=== PATIENT | male | born 1970 | race Caucasian/White ===

== ENCOUNTER 2022-04-29 15:12 | Emergency (ER) | payer OTHER, SELFPAY ==
[2022-04-29 15:17] VITALS: BP 130/88; PULSE 89; RESP 18; TEMP 36.8; O2SAT 98
[2022-04-29 15:22] VITALS: BP 181/108; PULSE 89; RESP 16; O2SAT 99
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
[2022-04-29 16:34] VITALS: BP 181/108; PULSE 89; RESP 16; TEMP 36.8; O2SAT 99
[2022-04-29] MEDS: orphenadrine 30 mg/mL Inj 2 mL 60 MG IM (16:36)
[2022-04-29] MEDS: dexamethasone 10 mg/mL INJ IM (16:36)
[2022-04-29] MEDS: ketorolac 60 mg/2 mL INJ IM (16:36)
[2022-04-29 18:04] VITALS: BP 137/65; PULSE 82; RESP 16; O2SAT 93
[2022-04-29 18:38] VITALS: BP 125/78; PULSE 87; RESP 17; O2SAT 98
== END 2022-04-29 18:41 | disposition home or self-care (01) ==
PROVIDERS: Emergency Provider Family Medicine
DX: M54.50 Low back pain, unspecified (principal)
CPT/HCPCS: 72125; 72128; 72131; 96372; 99284; J1100; J1885; J2360

== ENCOUNTER 2022-05-05 11:01 | Emergency (ER) | payer OTHER, SELFPAY ==
[2022-05-05 11:19] VITALS: BP 131/84; PULSE 70; RESP 16; TEMP 36.7; O2SAT 97; BMI 31.1
[2022-05-05 11:53] LABS: Add Urine Microscopic? NO; Charge for UA Resulting for Rev
[2022-05-05 11:53] LABS: Basophils % 0.4 %; Eosinophils # 0.1 10^3/uL (0.0-0.8); Eosinophils % 1.4 %; Hematocrit 49.7 % (42.0-52.0); Hemoglobin 16.7 g/dL (11.7-16.6); Lymphocytes # 3.5 10^3/uL (0.8-4.8); Lymphocytes % 37.2 %; Mean Corpuscular HGB Conc 33.6 g/dL (30.0-36.0); Mean Corpuscular Hemoglobin 30.2 pg (28.0-34.0); Mean Corpuscular Volume 89.9 fl (80-94); Monocytes # 0.8 10^3/uL (0.2-0.9); Monocytes % 8.3 %; Neutrophils # 4.77 10^3/uL (1.8-7.7); Neutrophils % 51.2 %; Nucleated Red Blood Cells % 0 %; Platelet Count 175 10^3/cmm (130-400); Red Blood Count 5.53 10^6/uL (4.1-5.3); Red Cell Distribution Width 12.9 % (12.1-15.1); White Blood Count 9.3 10^3/uL (4.0-10.0)
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
[2022-05-05 11:56] LABS: Bilirubin Urine Neg (Negative); Blood Urine Neg (Negative); Glucose Urine UA Norm (Normal); Ketones Urine Negative (Negative); Leukocyte Esterase Urine Negative (Negative); Nitrate Urine Negative (Negative); Protein Urine Neg (Negative); Urine Appearance Clear (CLEAR); Urine Color Yellow (Yellow); Urobilinogen Urine Norm (Negative); pH Urine 6.5 (5-7)
[2022-05-05 12:20] LABS: Alanine Aminotransferase 55 U/L (0-41); Albumin Level 4.6 g/dL (3.5-5.2); Alkaline Phosphatase 59 U/L (40-130); Anion Gap 11.8 (5-19); Aspartate Amino Transferase 27 U/L (0-40); Blood Urea Nitrogen 17 mg/dL (6-20); Calcium 9.4 mg/dL (8.5-10.5); Carbon Dioxide 31 mmol/L (22-29); Chloride 98 mmol/L (98-107); Globulin 3.1 g/dL (1.3-4.6); Glomerular Filtration Rate 89.7 mL/min (90-130); Glucose 118 mg/dL (65-115); Lipase 44 U/L (13-60); Osmolality Calculated 287 mOsm/kg (285-295); Potassium 3.8 mmol/L (3.5-5.1); Sodium 137 mmol/L (136-145); Total Bilirubin 0.5 mg/dL (0.15-1.2); Total Protein 7.7 g/dL (6.6-8.7)
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
[2022-05-05 12:52] VITALS: BP 128/79; PULSE 76; RESP 14; O2SAT 98
== END 2022-05-05 12:52 | disposition home or self-care (01) ==
PROVIDERS: Emergency Medicine; Emergency Provider Physician Assistant
DX: R10.10 Upper abdominal pain, unspecified (principal)
CPT/HCPCS: 76705; 80053; 81003; 83690; 85025; 99284

== ENCOUNTER 2024-04-14 06:30 | Outpatient (RCR) | payer OTHER, SELFPAY | END 2024-05-14 23:59 | disposition home or self-care (01) | LOC: GPT 06:30 | PROVIDERS: Visit Provider Nurse Practitioner Family | DX: M25.512 Pain in left shoulder (principal) | CPT/HCPCS: 97110; 97140; 97162 ==

== ENCOUNTER 2024-06-12 06:30 | Outpatient (RCR) | payer OTHER, SELFPAY | END 2024-07-12 23:59 | disposition home or self-care (01) | LOC: GPT 06:30 | PROVIDERS: Visit Provider Nurse Practitioner Family | DX: M25.512 Pain in left shoulder (principal) | CPT/HCPCS: 97110; 97140; 97164 ==

== ENCOUNTER 2024-07-13 05:00 | Outpatient (RCR) | payer OTHER, SELFPAY | END 2024-08-11 23:59 | disposition home or self-care (01) | LOC: GPT 05:00 | PROVIDERS: Visit Provider Nurse Practitioner Family | DX: M25.512 Pain in left shoulder (principal) | CPT/HCPCS: 97110; 97140 ==